=== PATIENT | female | born 1945 | race Caucasian/White ===

== ENCOUNTER 2017-12-02 16:54 | Inpatient (IN) | payer MEDICARE ==
[2017-12-02 16:54] VITALS: PULSE 115
[2017-12-02 17:17] VITALS: BMI 26.4
[2017-12-02] MEDS ORDERED: Sodium Chloride 0.9% 500 ML IV ONE ×2 (17:50→18:34)
--- NOTE | 2017-12-02 17:57 | C.PDOC ---
History Of Present Illness 72-year-old female w/PMHx of diabetes , HTN, hyperlipdemia, extensive psoriasis and psoriatic arthritis and venous stasis, chronic non-healing lower extremities ulcers was sent to ED by Dr Shaffer for admission secondary to bilateral leg cellulitis. As per pt, failed oupt treatment with antibiotic. Patient denies fever, chills, chest pain, SOB, nausea, vomiting, weakness or numbness in the legs. Pt reports similar sx in past, last one was month ago. pt is able to walk and denies any claudication. A Time Seen by Provider: 12/02/17 17:45 Chief Complaint (Nursing): Lower Extremity Problem/Injury History Per: Patient, Other (Rx from Dr Shaffer) History/Exam Limitations: no limitations Past Medical History Reviewed: Historical Data, Nursing Documentation, Vital Signs Vital Signs: Last Vital Signs Temp 98.1 F 12/03/17 02:46 Pulse 99 H 12/03/17 03:45 Resp 20 12/03/17 02:46 BP 114/70 12/03/17 10:17 Pulse Ox 95 12/03/17 10:36 - Medical History PMH: Cardia Arrhythmia, Gastritis, HTN Family History: States: No Known Family Hx - Social History Hx Alcohol Use: No Hx Substance Use: No - Immunization History Hx Tetanus Toxoid Vaccination: Yes Hx Influenza Vaccination: No Hx Pneumococcal Vaccination: No Review Of Systems Except As Marked, All Systems Reviewed And Found Negative. Constitutional: Negative for: Fever Cardiovascular: Negative for: Chest Pain Respiratory: Negative for: Shortness of Breath Gastrointestinal: Negative for: Nausea, Vomiting Neurological: Negative for: Weakness, Numbness Physical Exam - Physical Exam Appears: Non-toxic, No Acute Distress Skin: Warm, Dry, No Rash, Other (Right leg: lateral aspect of lower 2/3 leg 2ulcers 3x4cm and 9#5cm moderate serous drainage noted, diffuse erythema of leg , no fluctuance, no malodor, no purulence) Head: Normacephalic Eye(s): bilateral: PERRL Nose: Normal Throat: No Erythema, No Drooling Neck: Trachea Midline, Supple Chest: Symmetrical Cardiovascular: Rhythm Regular, No Murmur Respiratory: No Decreased Breath Sounds, No Accessory Muscle Use, No Rales, No Rhonchi, No Stridor, No Wheezing Gastrointestinal/Abdominal: Soft, No Tenderness, No Distention, No Guarding Extremity: Normal ROM, No Deformity, Swelling (R>L mild diffuse lower legs edema ), Other (Left leg:ulceration #3 noted to posterior-lateral aspect of left leg measuring approx 4 x 3cm with moderate serous drainage noted, diffuse erythema of leg, no fluctuance, no malodor, no purulence. Left hallux nail amputated.) Pulses: Left Dorsalis Pedis: Normal, Right Dorsalis Pedis: Normal Neurological/Psych: Oriented x3, Normal Speech, Normal Motor, Normal Sensation, Normal Reflexes ED Course And Treatment - Laboratory Results Result Diagrams: 12/02/17 18:27 12/03/17 03:30 O2 Sat by Pulse Oximetry: 95 (RA) Pulse Ox Interpretation: Normal Progress Note: Case discussed with and admission arranged. Podiatry resident notified about admission consult. Pt remained stable during the ED evaluation. Disposition - Disposition Disposition: HOSPITALIZED Disposition Time: 18:40 Condition: STABLE - Clinical Impression Clinical Impression: Cellulitis, Diabetic ulcer of ankle - Scribe Statement The provider has reviewed the documentation as recorded by the Scribe (Reyna Akbar) All medical record entries made by the Scribe were at my direction and personally dictated by me. I have reviewed the chart and agree that the record accurately reflects my personal performance of the history, physical exam, medical decision making, and the department course for this patient. I have also personally directed, reviewed, and agree with the discharge instructions and disposition.
[2017-12-02 18:36] LABS: BASO # 0.1 K/uL (0.0-0.2); BASO % 1.6 % (0.0-2.0); EOS # 0.1 K/uL (0.0-0.7); EOS % 2.3 % (0.0-4.0); HEMOGLOBIN 10.6 g/dL (11.0-16.0); LYMPH # 0.7 K/uL (1.0-4.3); LYMPH % 21.5 % (20.0-40.0); MEAN CELL VOLUME 82.4 fL (81.0-99.0); MEAN CORPUSCULAR HEMOGLOBIN 26.5 pg (27.0-31.0); MEAN CORPUSCULAR HGB CONC 32.1 g/dL (33.0-37.0); MEAN PLATELET VOLUME 7.4 fL (7.2-11.7); MONO # 0.4 K/uL (0.0-0.8); MONO % 12.7 % (0.0-10.0); NEUT # 2.1 K/uL (1.8-7.0); NEUT % 61.9 % (50.0-75.0); RBC 4.02 Mil/uL (3.80-5.20); RED CELL DISTRIBUTION WIDTH 14.9 % (11.5-14.5); WHITE BLOOD COUNT 3.3 K/uL (4.8-10.8)
[2017-12-02 18:52] LABS: ALB/GLOB RATIO 0.8 (1.0-2.1); ALBUMIN 3.9 g/dL (3.5-5.0); CALCIUM 9.5 mg/dl (8.6-10.4)
[2017-12-02] MEDS ORDERED: Piperacill/Tazo 3.375gm in Dex 3.375 GM/50 ML BAG IVPB SCH (19:00)
[2017-12-02 19:58] LABS: SQUAMOUS EPITHIAL < 1 /hpf (0-5); URINE BILIRUBIN NEGATIVE (NEGATIVE); URINE BLOOD NEGATIVE (NEGATIVE); URINE CLARITY Clear (Clear); URINE COLOR Yellow (YELLOW); URINE GLUCOSE (UA) NORMAL (Normal); URINE LEUKOCYTE ESTERASE NEG Leu/uL (Negative); URINE NITRATE NEGATIVE (NEGATIVE); URINE PROTEIN 1+ mg/dL (NEGATIVE); URINE UROBILINOGEN NORMAL mg/dL (0.2-1.0)
--- NOTE | 2017-12-02 21:35 | CP.PCM.CON ---
History of Present Illness - History of Present Illness History of Present Illness: Podiatry Consult Note- Dr. Shaffer 72 y.o female with PMHx of DM, HTN, hyperlipidemia, psoriasis, psoriatric arthritis, venous stasis disease seen and evaluated in the ED for LE cellulites and bilaterally ulcerations. Patient is known to Dr. Shaffer and sent to the ED to be admitted for cellulitic changes to LE with ulcerations after seeing her in the office yesterday. Patient reports pain to the LE. She describes the pain as a burning pain that stays localized to the ulceration sites. She reports that there has been increase drainage to her legs. She also reports recently having her big toe nails being removed by Dr. Shaffer in the office. She denies n/ v/c/sob/cp/weakness/dizziness. She reports having a fever yesterday. Past Patient History - Infectious Disease Hx of Infectious Diseases: None - Past Medical History & Family History Past Medical History?: Yes - Past Social History Smoking Status: Never Smoked - CARDIAC Hx Cardia Arrhythmia: Yes Hx Hypertension: Yes - PULMONARY Hx Respiratory Disorders: No - NEUROLOGICAL Hx Neurological Disorder: No - HEENT Hx HEENT Problems: Yes Hx Cataracts: Yes - ENDOCRINE/METABOLIC Hx Endocrine Disorders: Yes Hx Diabetes Mellitus Type 2: Yes - HEMATOLOGICAL/ONCOLOGICAL Hx Blood Disorders: Yes Hx Cancer: Yes (BREAST CA 1995) - INTEGUMENTARY Hx Dermatological Problems: Yes Other/Comment: psoriasis - MUSCULOSKELETAL/RHEUMATOLOGICAL Hx Musculoskeletal Disorders: Yes Hx Falls: Yes - GASTROINTESTINAL Hx Gastritis: Yes - PSYCHIATRIC Hx Substance Use: No - SURGICAL HISTORY Hx Surgeries: Yes Hx Section: Yes (x1) Hx Herniorrhaphy: Yes (x3) Hx Tubal Ligation: Yes Other/Comment: left breast lumpectomy. cardiac catherization - ANESTHESIA Hx Anesthesia: Yes Hx Anesthesia Reactions: No Meds Allergies/Adverse Reactions: Allergies Allergy/AdvReac Type Severity Reaction Status Date / Time apple Allergy Verified 12/02/17 17:15 aspirin Allergy RASH Verified 12/02/17 17:15 iodine Allergy RASH Verified 12/02/17 17:15 egg Allergy Uncoded 12/02/17 17:15 seafood Allergy RASH Uncoded 11/12/16 11:49 - Medications Medications: Current Medications Apixaban (Eliquis) 5 mg PO BID [facility] Diltiazem HCl (Cardizem) 30 mg PO TID [facility] Folic Acid (Folic Acid) 1 mg PO DAILY [facility] Furosemide (Lasix) 20 mg PO DAILY [facility] Gabapentin (Neurontin) 300 mg PO BID [facility] Hydrochlorothiazide (Hydrodiuril) 25 mg PO DAILY [facility] Piperacillin Sod/Tazobactam Sod (Zosyn 3.375 Gm Iv Premix) 3.375 gm in 50 mls @ 100 mls/hr IVPB Q8H [facility] Insulin Human Regular (Novolin R) 0 unit SC ACHS [facility] PRN Reason: Protocol Losartan Potassium (Cozaar) 100 mg PO DAILY [facility] Metformin HCl (Glucophage) 500 mg PO BID [facility] Pantoprazole Sodium (Protonix Ec Tab) 40 mg PO DAILY [facility] Physical Exam - Constitutional Appears: Well, Non-toxic, No Acute Distress - Extremities Exam Extremities exam: Negative for: calf tenderness Additional comments: Dressing is soaking wet to LE, serous in nature VASC- DP/PT pulses palpable bl, TG runs warm to warm bl, cft <3 sec to digits x 10, 2+ pitting edema noted to anterior aspect of shins and dorsum of feet b DERM: Right- Ulceration #1 noted to lateral aspect of lower 1/3 leg measures approximately 9x5 x0.2cm 100% fibrotic wound base, moderate serous drainage noted, diffuse erythema of leg, no probe to bone, no fluctuance, no malodor, no purulence Ulceration #2 noted to lateral aspect of lower 2/3 leg measures approximately 3x4x0.2cm 100% fibrotic wound base, moderate serous drainage noted, diffuse erythema of leg, no probe to bone, no fluctuance, no malodor, no purulence Left ulceration #3 noted to posterior-lateral aspect of left leg measuring approx 4 x 3 x 0.2cm with 100% fibrotic wound base, moderate serous drainage noted, diffuse erythema of leg, no probe to bone, no fluctuance, no malodor, no purulence. Missing hallux nail plate, granular wound base. no probe to bone, no fluctuance , no malodor, no purulence. no active drainage NEURO: gross pedal sensation intact bl, protective sensation diminished bl ORTHO: tenderness upon palpation to skin surrounding ulcerations bl - Neurological Exam Neurological exam: Alert, Oriented x3 - Psychiatric Exam Psychiatric exam: Normal Affect, Normal Mood Results - Vital Signs Recent Vital Signs: Last Vital Signs Temp 97.3 F L 12/02/17 17:17 Pulse 102 H 12/02/17 17:17 Resp 18 12/02/17 17:17 BP 112/74 12/02/17 17:17 Pulse Ox 95 12/02/17 18:01 - Labs Result Diagrams: 12/02/17 18:27 12/02/17 18:27 Labs: Laboratory Results - last 24 hr 12/02/17 12/02/17 12/02/17 18:27 18:27 19:48 WBC 3.3 L RBC 4.02 Hgb 10.6 L Hct 33.1 L MCV 82.4 D MCH 26.5 L MCHC 32.1 L RDW 14.9 H Plt Count 316 MPV 7.4 Neut % (Auto) 61.9 Lymph % (Auto) 21.5 [place] % (Auto) 12.7 H Eos % (Auto) 2.3 Baso % (Auto) 1.6 Neut # (Auto) 2.1 Lymph # (Auto) 0.7 L [place] # (Auto) 0.4 Eos # (Auto) 0.1 Baso # (Auto) 0.1 Sodium 130 L Potassium 5.8 H Chloride 93 L Carbon Dioxide 26 Anion Gap 17 BUN 40 H Creatinine 1.6 H Est GFR ( Amer) 39 Est GFR (Non-Af Amer) 32 Random Glucose 122 H Calcium 9.5 Total Bilirubin 0.5 AST 24 ALT 25 Alkaline Phosphatase 86 Total Protein 8.8 H Albumin 3.9 Globulin 4.9 H Albumin/Globulin Ratio 0.8 L Urine Color Yellow Urine Clarity Clear Urine pH 6.0 Ur Specific [place] 1.011 Urine Protein 1+ H Urine Glucose (UA) Normal Urine Ketones Negative Urine Blood Negative Urine Nitrate Negative Urine Bilirubin Negative Urine Urobilinogen Normal Ur Leukocyte Esterase Neg Urine WBC (Auto) < 1 Urine RBC (Auto) < 1 Ur Squamous Epith Cells < 1 Assessment & Plan - Assessment and Plan (Free Text) Assessment: 71 yo female patient with bilateral lower extremity ulcerations secondary to venous stasis disease and cellulitis Plan: Patient examined and evaluated Discussed plan in detail with attending Dr. Shaffer Labs, vitals, and chart reviewed LE cleansed with saline solution, ulcerations dressed with adaptic, dsd, and cling Gauze between the interdigits Wound culture taken- pending results Ordered tib/fib x-ray to rule out bony pathology Ordered bilateral x-ray to rule out bony pathology Ordered- antonioe; to be applied to LE Ordered LE US to r/o DVT c/w current abx Podiatry will continue to follow while in house Thank you for the consult
--- NOTE | 2017-12-02 22:58 | CP.PCM.HP ---
History of Present Illness - History of Present Illness History of Present Illness: CC: b/l LE swelling, redness, fever x 1 week HPI: 72 y.o female well known to me with PMHx of DM, HTN, hyperlipidemia, psoriasis, psoriatric arthritis, venous stasis disease seen and evaluated in the ED for LE cellulites and bilaterally ulcerations. Patient is known to Dr. Shaffer and sent to the ED to be admitted for cellulitic changes to LE with ulcerations after seeing her in the office yesterday. Patient reports worsening pain to the LE. She describes the pain as a burning pain that stays localized to the ulceration sites. She reports that there has been increase drainage to her legs. She also reports recently having her big toe nails being removed by Dr. Shaffer in the office. she complain of fever, fatigue and malaise .She denies n/v/c/sob/cp/weakness/dizziness. She reports having a fever yesterday. Present on Admission - Present on Admission Any Indicators Present on Admission: Yes Past Patient History - Infectious Disease Hx of Infectious Diseases: None - Past Medical History & Family History Past Medical History?: Yes - Past Social History Smoking Status: Never Smoked - CARDIAC Hx Cardia Arrhythmia: Yes Hx Hypertension: Yes - PULMONARY Hx Respiratory Disorders: No - NEUROLOGICAL Hx Neurological Disorder: No - HEENT Hx HEENT Problems: Yes Hx Cataracts: Yes - ENDOCRINE/METABOLIC Hx Endocrine Disorders: Yes Hx Diabetes Mellitus Type 2: Yes - HEMATOLOGICAL/ONCOLOGICAL Hx Blood Disorders: Yes Hx Cancer: Yes (BREAST CA 1995) - INTEGUMENTARY Hx Dermatological Problems: Yes Other/Comment: psoriasis - MUSCULOSKELETAL/RHEUMATOLOGICAL Hx Musculoskeletal Disorders: Yes Hx Falls: Yes - GASTROINTESTINAL Hx Gastritis: Yes - PSYCHIATRIC Hx Substance Use: No - SURGICAL HISTORY Hx Surgeries: Yes Hx Section: Yes (x1) Hx Herniorrhaphy: Yes (x3) Hx Tubal Ligation: Yes Other/Comment: left breast lumpectomy. cardiac catherization - ANESTHESIA Hx Anesthesia: Yes Hx Anesthesia Reactions: No Meds Allergies/Adverse Reactions: Allergies Allergy/AdvReac Type Severity Reaction Status Date / Time apple Allergy Verified 12/02/17 17:15 aspirin Allergy RASH Verified 12/02/17 17:15 iodine Allergy RASH Verified 12/02/17 17:15 egg Allergy Uncoded 12/02/17 17:15 seafood Allergy RASH Uncoded 11/12/16 11:49 Physical Exam - Constitutional Appears: Chronically Ill Additional comments: elderly female in distress due to pain in b/l LE - Head Exam Head Exam: ATRAUMATIC, NORMAL INSPECTION, NORMOCEPHALIC - Eye Exam Eye Exam: EOMI, Normal appearance, PERRL Pupil Exam: NORMAL ACCOMODATION, PERRL - Respiratory Exam Respiratory Exam: Clear to Auscultation Bilateral, NORMAL BREATHING PATTERN - Cardiovascular Exam Cardiovascular Exam: REGULAR RHYTHM - GI/Abdominal Exam GI & Abdominal Exam: Normal Bowel Sounds, Soft. absent: Tenderness - Extremities Exam Extremities exam: Positive for: tenderness Additional comments: redness, swelling, puffiness with ulcerations on skin b/l LE more on right side - Neurological Exam Neurological exam: Alert, Oriented x3 - Psychiatric Exam Psychiatric exam: Normal Affect, Normal Mood - Skin Skin Exam: Dry, Intact, Normal Color, Warm Results - Vital Signs Recent Vital Signs: Last Vital Signs Temp 97.3 F L 12/02/17 17:17 Pulse 102 H 12/02/17 17:17 Resp 18 12/02/17 17:17 BP 112/74 12/02/17 17:17 Pulse Ox 95 12/02/17 18:01 - Labs Result Diagrams: 12/02/17 18:27 12/02/17 18:27 Labs: Laboratory Results - last 24 hr 12/02/17 12/02/17 12/02/17 18:27 18:27 19:48 WBC 3.3 L RBC 4.02 Hgb 10.6 L Hct 33.1 L MCV 82.4 D MCH 26.5 L MCHC 32.1 L RDW 14.9 H Plt Count 316 MPV 7.4 Neut % (Auto) 61.9 Lymph % (Auto) 21.5 [place] % (Auto) 12.7 H Eos % (Auto) 2.3 Baso % (Auto) 1.6 Neut # (Auto) 2.1 Lymph # (Auto) 0.7 L [place] # (Auto) 0.4 Eos # (Auto) 0.1 Baso # (Auto) 0.1 Sodium 130 L Potassium 5.8 H Chloride 93 L Carbon Dioxide 26 Anion Gap 17 BUN 40 H Creatinine 1.6 H Est GFR ( Amer) 39 Est GFR (Non-Af Amer) 32 Random Glucose 122 H Calcium 9.5 Total Bilirubin 0.5 AST 24 ALT 25 Alkaline Phosphatase 86 Total Protein 8.8 H Albumin 3.9 Globulin 4.9 H Albumin/Globulin Ratio 0.8 L Urine Color Yellow Urine Clarity Clear Urine pH 6.0 Ur Specific [place] 1.011 Urine Protein 1+ H Urine Glucose (UA) Normal Urine Ketones Negative Urine Blood Negative Urine Nitrate Negative Urine Bilirubin Negative Urine Urobilinogen Normal Ur Leukocyte Esterase Neg Urine WBC (Auto) < 1 Urine RBC (Auto) < 1 Ur Squamous Epith Cells < 1 Assessment & Plan (1) Cellulitis Assessment and Plan: Assessment: 71 yo female patient with bilateral lower extremity ulcerations secondary to venous stasis disease and cellulitis Plan: Patient examined and evaluated Admitted for further medical management Labs, vitals, and chart reviewed LE cleansed with saline solution, ulcerations dressed with adaptic, dsd, and cling by podiatry Gauze between the interdigits Wound culture taken- pending results Ordered tib/fib x-ray to rule out bony pathology Ordered bilateral x-ray to rule out bony pathology Ordered- silvadene; to be applied to LE Ordered LE US to r/o DVT c/w current abx rule out diabetic foot Status: Acute (2) Diabetes Status: Chronic (3) HTN (hypertension) Status: Chronic
[2017-12-02] MEDS ORDERED: Vancomycin 1 gm/NS 200 ml 1 GM/200 ML BAG IVPB ONE (23:00)
[2017-12-02] MEDS ORDERED: (Novolin R) Insulin Human Regular 100 units/ml vial ONE (23:24)
[2017-12-02] MEDS: (Novolin R) Insulin Human Regular 100 units/ml vial SC SCH (23:24)
[2017-12-02] MEDS: Piperacill/Tazo 3.375gm in Dex 3.375 GM/50 ML BAG IVPB SCH (23:48)
[2017-12-03 03:45] LABS: CALCIUM 8.9 mg/dl (8.6-10.4)
[2017-12-03] MEDS: Piperacill/Tazo 3.375gm in Dex 3.375 GM/50 ML BAG IVPB SCH ×2 (06:00→14:00)
[2017-12-03] MEDS: (Novolin R) Insulin Human Regular 100 units/ml vial SC SCH ×4 (07:54→21:55)
[2017-12-03] MEDS: Pantoprazole 40 mg EC Tab PO SCH (10:18)
--- NOTE | 2017-12-03 11:21 | CP.PCM.PN ---
Subjective - Date & Time of Evaluation Date of Evaluation: 12/03/17 Time of Evaluation: 11:21 - Subjective Subjective: 72 y/o female seen at bedside with attending Dr. Shaffer for bilateral cellulitis with weeping ulcerations. Pt states her pain is improved today but still present in both legs. Pt says it is very tender to touch the legs. Pt also says she still has an ulcer on the top of her right toe after bumping it a few weeks ago. Denies F/C/N/V/CP/SOB at present Objective - Vital Signs/Intake and Output Vital Signs (last 24 hours): Temp Pulse Resp BP Pulse Ox 98.1 F 99 H 20 114/70 95 12/03/17 02:46 12/03/17 03:45 12/03/17 02:46 12/03/17 10:17 12/03/17 10:44 Intake and Output: 12/03/17 12/03/17 06:59 18:59 Intake Total 350 Balance 350 - Medications Medications: Current Medications Apixaban (Eliquis) 5 mg PO BID [facility] Last Admin: 12/03/17 10:17 Dose: 5 mg Diltiazem HCl (Cardizem) 30 mg PO TID [facility] Last Admin: 12/03/17 10:17 Dose: 30 mg Folic Acid (Folic Acid) 1 mg PO DAILY [facility] Last Admin: 12/03/17 10:17 Dose: 1 mg Furosemide (Lasix) 20 mg PO DAILY [facility] Last Admin: 12/03/17 10:17 Dose: 20 mg Gabapentin (Neurontin) 300 mg PO BID [facility] Last Admin: 12/03/17 10:18 Dose: 300 mg Hydrochlorothiazide (Hydrodiuril) 25 mg PO DAILY [facility] Last Admin: 12/03/17 10:17 Dose: 25 mg Piperacillin Sod/Tazobactam Sod (Zosyn 3.375 Gm Iv Premix) 3.375 gm in 50 mls @ 100 mls/hr IVPB Q8H [facility] Last Admin: 12/03/17 06:00 Dose: 100 mls/hr Insulin Human Regular (Novolin R) 0 unit SC ACHS [facility] PRN Reason: Protocol Last Admin: 12/03/17 07:54 Dose: Not Given Losartan Potassium (Cozaar) 100 mg PO DAILY [facility] Last Admin: 12/03/17 10:17 Dose: 100 mg Metformin HCl (Glucophage) 500 mg PO BID [facility] Last Admin: 12/03/17 10:17 Dose: 500 mg Pantoprazole Sodium (Protonix Ec Tab) 40 mg PO DAILY [facility] Last Admin: 12/03/17 10:18 Dose: 40 mg Pneumococcal Polyvalent Vaccine (Pneumovax 23 Vaccine) 0.5 ml IM .ONCE ONE Stop: 12/04/17 10:01 - Labs Labs: 12/02/17 18:27 12/03/17 03:30 - Constitutional Appears: Well, Non-toxic, No Acute Distress - Extremities Exam Additional comments: Lower extremity exam: VASC- DP/PT pulses palpable 1/4 B/L. TG runs warm to warm B/L. CFT <3 sec to digits x 10. +2 pitting edema noted to anterior aspect of shins and dorsum of feet B/L DERM: Right- Ulceration #1 noted to lateral aspect of lower 1/3 leg measures approximately 9cm x 5cm x0.2cm with 100% fibrotic wound base, minimal serous drainage noted on previous bandage with no active drainage today. Diffuse erythema with cellulitic changes noted to leg. Wound exhibits no probe to bone, no fluctuance , no malodor, no purulence Ulceration #2 noted to lateral aspect of lower 2/3 leg measures approximately 3cm x4cm x0.2cm with 100% fibrotic wound base. Minimal serous drainage noted on bandage, with no active drainage on exam. Diffuse mild erythema of leg with cellulitic changes noted. Wound exhibits no probe to bone, no fluctuance, no malodor, no purulence. Left: ulceration #3 noted to posterolateral aspect of left leg measuring approx 4cm x 3cm x 0.2cm with 100% fibrotic wound base, minimal serous drainage noted. Mild erythema noted to leg. Wound exhibits no probe to bone, no fluctuance, no malodor, no purulence. Missing hallux nail plate - granular wound base noted to proximal hallucal nail bed. No probe to bone, no fluctuance, no malodor, no purulence. no active drainage NEURO: gross pedal sensation intact B/L. Protective sensation diminished B/L ORTHO: tenderness upon palpation to skin surrounding ulcerations B/L - Neurological Exam Neurological Exam: Alert, Awake, Oriented x3 - Psychiatric Exam Psychiatric exam: Normal Affect, Normal Mood Assessment and Plan - Assessment and Plan (Free Text) Assessment: 71 yo female patient with bilateral lower extremity ulcerations secondary to venous stasis disease and cellulitis Plan: Patient examined and evaluated with attending Dr. Shaffer Labs, vitals, and chart reviewed - afebrile, WBC 3.3 LE cleansed with saline solution, ulcerations dressed with medi-honey, ABD and DSD B/L Wound culture taken- pending results Ordered tib/fib x-ray to rule out bony pathology Ordered bilateral x-ray to rule out bony pathology Ordered LE US to r/o DVT Arterial duplex pending Continue IV Zosyn Podiatry will continue to follow while in house
--- NOTE | 2017-12-03 14:24 | RAD ---
PROCEDURE: Radiographs of the bilateral Tibiae and Fibulae. HISTORY: r/o bony pathology COMPARISON: Bilateral tibia fibula radiographs performed 11/12/16 TECHNIQUE: Frontal and lateral views obtained. FINDINGS: BONES: RIGHT TIBIA: No acute displaced fracture. Small calcaneal enthesophyte and heel spur. Suprapatellar and infrapatellar enthesophytes. Suprapatellar enthesophyte. Small calcaneal enthesophyte and heel spur. LEFT TIBIA: No acute displaced fracture. JOINT SPACES: RIGHT TIBIA: No dislocation. Degenerative changes including joint space narrowing. LEFT TIBIA: No dislocation. Degenerative changes including joint space narrowing. SOFT TISSUES: RIGHT TIBIA: Probable soft tissue edema. No evidence of radiopaque foreign body. LEFT TIBIA: Probable soft tissue edema. No evidence of radiopaque foreign body. OTHER FINDINGS: None. IMPRESSION: Probable bilateral soft tissue edema. Osseous demineralization. No acute displaced fracture or dislocation identified. Degenerative changes bilaterally.
--- NOTE | 2017-12-03 14:28 | RAD ---
PROCEDURE: Bilateral Feet Radiographs. HISTORY: r/o bony pathology COMPARISON: Bilateral foot radiographs performed 11/12/16 FINDINGS: BONES: Right Foot: Osseous demineralization. Degenerative changes. Left Foot: Osseous demineralization. Degenerative changes. JOINTS: Right Foot: No dislocation. Left Foot: No dislocation. SOFT TISSUES: Right Foot: Soft tissue swelling. Left Foot: Soft tissue swelling. OTHER FINDINGS: None. IMPRESSION: Soft tissue swelling bilaterally. Osseous demineralization. Degenerative changes.
--- NOTE | 2017-12-03 18:56 | CP.PCM.PN ---
Objective - Vital Signs/Intake and Output Vital Signs (last 24 hours): Temp Pulse Resp BP Pulse Ox 97.6 F 123 H 20 102/63 96 12/03/17 16:00 12/03/17 16:00 12/03/17 16:00 12/03/17 16:00 12/03/17 16:00 Intake and Output: 12/03/17 12/03/17 06:59 18:59 Intake Total 350 730 Balance 350 730 - Medications Medications: Current Medications Apixaban (Eliquis) 5 mg PO BID [facility] Last Admin: 12/03/17 17:55 Dose: 5 mg Diltiazem HCl (Cardizem) 30 mg PO TID [facility] Last Admin: 12/03/17 17:55 Dose: 30 mg Folic Acid (Folic Acid) 1 mg PO DAILY [facility] Last Admin: 12/03/17 10:17 Dose: 1 mg Furosemide (Lasix) 20 mg PO DAILY [facility] Last Admin: 12/03/17 10:17 Dose: 20 mg Gabapentin (Neurontin) 300 mg PO BID [facility] Last Admin: 12/03/17 17:55 Dose: 300 mg Hydrochlorothiazide (Hydrodiuril) 25 mg PO DAILY [facility] Last Admin: 12/03/17 10:17 Dose: 25 mg Piperacillin Sod/Tazobactam (Sod 3.375 gm/ Sodium Chloride) 100 mls @ 100 mls/ hr IVPB Q8H [facility] Insulin Human Regular (Novolin R) 0 unit SC ACHS [facility] PRN Reason: Protocol Last Admin: 12/03/17 16:30 Dose: Not Given Losartan Potassium (Cozaar) 100 mg PO DAILY [facility] Last Admin: 12/03/17 10:17 Dose: 100 mg Metformin HCl (Glucophage) 500 mg PO BID [facility] Last Admin: 12/03/17 17:55 Dose: 500 mg Pantoprazole Sodium (Protonix Ec Tab) 40 mg PO DAILY [facility] Last Admin: 12/03/17 10:18 Dose: 40 mg Pneumococcal Polyvalent Vaccine (Pneumovax 23 Vaccine) 0.5 ml IM .ONCE ONE Stop: 12/04/17 10:01 - Labs Labs: 12/02/17 18:27 12/03/17 03:30 Assessment and Plan (1) Cellulitis Status: Acute (2) Diabetes Status: Chronic (3) HTN (hypertension) Status: Chronic
[2017-12-03] MEDS: Piperacillin/Tazobact 3.375 GM in Sodium Chloride 0.9% 100 ML IVPB SCH (22:47)
[2017-12-04] MEDS: Piperacillin/Tazobact 3.375 GM in Sodium Chloride 0.9% 100 ML IVPB SCH ×3 (06:00→22:01)
[2017-12-04] MEDS: (Novolin R) Insulin Human Regular 100 units/ml vial SC SCH ×4 (08:00→22:03)
[2017-12-04] MEDS ORDERED: Pneumococcal 23-Valent Vaccine IM ONE (10:00)
[2017-12-04] MEDS: Pantoprazole 40 mg EC Tab PO SCH (10:48)
--- NOTE | 2017-12-04 12:47 | CP.PCM.PN ---
Subjective - Date & Time of Evaluation Date of Evaluation: 12/04/17 Time of Evaluation: 12:44 - Subjective Subjective: Podiatry Progress Note - Dr. Shaffer 72 y/o female seen at bedside for bilateral cellulitis with weeping ulcerations. Pt states her pain is a little less today. Pt says there is less drainage than usual on her dressings. Denies F/C/N/V/CP/SOB at present Objective - Vital Signs/Intake and Output Vital Signs (last 24 hours): Temp Pulse Resp BP Pulse Ox 98.3 F 93 H 20 121/81 96 12/04/17 05:30 12/04/17 06:45 12/04/17 06:45 12/04/17 10:47 12/04/17 06:45 Intake and Output: 12/04/17 12/04/17 06:59 18:59 Intake Total 500 Balance 500 - Medications Medications: Current Medications Apixaban (Eliquis) 5 mg PO BID [facility] Last Admin: 12/04/17 10:46 Dose: 5 mg Diltiazem HCl (Cardizem) 30 mg PO TID [facility] Last Admin: 12/04/17 10:46 Dose: Not Given Folic Acid (Folic Acid) 1 mg PO DAILY [facility] Last Admin: 12/04/17 10:46 Dose: 1 mg Furosemide (Lasix) 20 mg PO DAILY [facility] Last Admin: 12/04/17 10:47 Dose: 20 mg Gabapentin (Neurontin) 300 mg PO BID [facility] Last Admin: 12/04/17 10:47 Dose: 300 mg Hydrochlorothiazide (Hydrodiuril) 25 mg PO DAILY [facility] Last Admin: 12/04/17 10:47 Dose: 25 mg Piperacillin Sod/Tazobactam (Sod 3.375 gm/ Sodium Chloride) 100 mls @ 100 mls/ hr IVPB Q8H [facility] Last Admin: 12/04/17 06:00 Dose: 100 mls/hr Insulin Human Regular (Novolin R) 0 unit SC ACHS [facility] PRN Reason: Protocol Last Admin: 12/04/17 11:54 Dose: Not Given Losartan Potassium (Cozaar) 100 mg PO DAILY [facility] Last Admin: 12/04/17 10:46 Dose: 100 mg Metformin HCl (Glucophage) 500 mg PO BID [facility] Last Admin: 12/04/17 10:46 Dose: 500 mg Pantoprazole Sodium (Protonix Ec Tab) 40 mg PO DAILY [facility] Last Admin: 12/04/17 10:48 Dose: 40 mg - Labs Labs: 12/02/17 18:27 12/03/17 03:30 - Constitutional Appears: Well, Non-toxic, No Acute Distress - Extremities Exam Additional comments: Lower extremity exam: VASC- DP/PT pulses palpable 1/4 B/L. TG runs warm to warm B/L. CFT <3 sec to digits x 10. +2 pitting edema noted to anterior aspect of shins and dorsum of feet B/L DERM: Right- Ulceration #1 noted to lateral aspect of lower 1/3 leg measures approximately 9cm x 5cm x0.2cm with 100% fibrotic wound base, minimal serous drainage noted on previous bandage with no active drainage today. Diffuse erythema with cellulitic changes noted to leg. Wound exhibits no probe to bone, no fluctuance , no malodor, no purulence Ulceration #2 noted to lateral aspect of lower 2/3 leg measures approximately 3cm x4cm x0.2cm with 100% fibrotic wound base. Minimal serous drainage noted on bandage, with no active drainage on exam. Diffuse mild erythema of leg with cellulitic changes noted. Wound exhibits no probe to bone, no fluctuance, no malodor, no purulence. Missing hallux nail plate - granular wound base noted to proximal hallucal nail bed. No probe to bone, no fluctuance, no malodor, no purulence. no active drainage Left: ulceration #3 noted to posterolateral aspect of left leg measuring approx 4cm x 3cm x 0.2cm with 100% fibrotic wound base, minimal serous drainage noted. Mild erythema noted to leg. Wound exhibits no probe to bone, no fluctuance, no malodor, no purulence. NEURO: gross pedal sensation intact B/L. Protective sensation diminished B/L ORTHO: tenderness upon palpation to skin surrounding ulcerations B/L - Neurological Exam Neurological Exam: Alert, Awake, Oriented x3 - Psychiatric Exam Psychiatric exam: Normal Affect, Normal Mood Assessment and Plan - Assessment and Plan (Free Text) Assessment: 71 yo female patient with bilateral lower extremity ulcerations secondary to venous stasis disease and cellulitis Plan: Patient examined and evaluated Discussed with attending Dr. Shaffer Labs, vitals, and chart reviewed - afebrile, NNL LE cleansed with saline solution, ulcerations dressed with medi-honey, ABD and DSD B/L Wound culture prelim shows growth of gram negative rods Foot and tib/fib x-rays negative for any erosive osseous changes Ordered LE US to r/o DVT Arterial duplex pending Continue IV Zosyn Podiatry will continue to follow while in house
[2017-12-04 16:12] VITALS: RESP 20
[2017-12-04] MEDS ORDERED: Metoprolol Succinate 25 mg XL Tab PO ONE (20:26)
--- NOTE | 2017-12-04 21:04 | CP.PCM.PN ---
Subjective - Date & Time of Evaluation Date of Evaluation: 12/04/17 Time of Evaluation: 10:00 - Subjective Subjective: Pt seen and examined, doing better, only her HR is 160, Pt states her pain is a little less today. Pt says there is less drainage than usual on her dressings. Denies F/C/N/V/CP/SOB at present Objective - Vital Signs/Intake and Output Vital Signs (last 24 hours): Temp Pulse Resp BP Pulse Ox 98.1 F 160 H 20 105/70 96 12/04/17 15:00 12/04/17 15:00 12/04/17 15:00 12/04/17 15:00 12/04/17 15:00 Intake and Output: 12/04/17 12/05/17 18:59 06:59 Intake Total 730 Balance 730 - Medications Medications: Current Medications Apixaban (Eliquis) 5 mg PO BID [facility] Last Admin: 12/04/17 17:47 Dose: 5 mg Diltiazem HCl (Cardizem) 30 mg PO TID [facility] Last Admin: 12/04/17 17:47 Dose: 30 mg Folic Acid (Folic Acid) 1 mg PO DAILY [facility] Last Admin: 12/04/17 10:46 Dose: 1 mg Furosemide (Lasix) 20 mg PO DAILY [facility] Last Admin: 12/04/17 10:47 Dose: 20 mg Gabapentin (Neurontin) 300 mg PO BID [facility] Last Admin: 12/04/17 18:00 Dose: 300 mg Piperacillin Sod/Tazobactam (Sod 3.375 gm/ Sodium Chloride) 100 mls @ 100 mls/ hr IVPB Q8H [facility] Last Admin: 12/04/17 14:07 Dose: 100 mls/hr Insulin Human Regular (Novolin R) 0 unit SC ACHS [facility] PRN Reason: Protocol Last Admin: 12/04/17 16:09 Dose: Not Given Losartan Potassium (Cozaar) 100 mg PO DAILY [facility] Last Admin: 12/04/17 10:46 Dose: 100 mg Metformin HCl (Glucophage) 500 mg PO BID [facility] Last Admin: 12/04/17 17:46 Dose: 500 mg Metoprolol Succinate (Toprol Xl) 25 mg PO DAILY [facility] Pantoprazole Sodium (Protonix Ec Tab) 40 mg PO DAILY [facility] Last Admin: 12/04/17 10:48 Dose: 40 mg - Labs Labs: 12/02/17 18:27 12/03/17 03:30 - Constitutional Appears: No Acute Distress - ENT Exam ENT Exam: Mucous Membranes Moist, Normal Exam - Respiratory Exam Respiratory Exam: Clear to Ausculation Bilateral, NORMAL BREATHING PATTERN - Cardiovascular Exam Cardiovascular Exam: Tachycardia, +S1, +S2 - Neurological Exam Neurological Exam: Alert, Awake, CN II-XII Intact, Normal Gait, Oriented x3 - Skin Skin Exam: Erythema, Vesicles Assessment and Plan (1) Cellulitis Status: Acute (2) Diabetes Status: Chronic (3) HTN (hypertension) Status: Chronic (4) Tachycardia Assessment & Plan: Rule of a,fib, flutter Status: Acute
[2017-12-05] MEDS: Piperacillin/Tazobact 3.375 GM in Sodium Chloride 0.9% 100 ML IVPB SCH ×3 (06:31→22:32)
[2017-12-05] MEDS: (Novolin R) Insulin Human Regular 100 units/ml vial SC SCH ×4 (08:00→22:33)
[2017-12-05] MEDS: Pantoprazole 40 mg EC Tab PO SCH (09:27)
--- NOTE | 2017-12-05 10:31 | VASCLAB ---
PROCEDURE: Lower Extremity Venous Duplex Exam. HISTORY: r/o dvt B/l Le venous stasis cellulitis, B/L LE edema, Previous DVT PRIORS: None. TECHNIQUE: Bilateral common femoral, femoral, popliteal and posterior tibial, peroneal and great saphenous veins were evaluated. Flow was assessed with color Doppler, compressibility, assessment of phasic flow and augmentation response. Report prepared by Cali Hammonds, T FINDINGS: RIGHT: 1. Common Femoral Vein: 1.1. Compressibility - Fully compressible: Thrombus - None : Flow - Phasic: Augmentation -Normal: Reflux - . 2. Femoral Vein: 2.1. Compressibility - Fully compressible: Thrombus - None : Flow - Phasic: Augmentation -Normal: Reflux - . 3. Popliteal Vein: 3.1. Compressibility - Partial: Thrombus - Chronic : Flow - Reduced : Augmentation -Reduced: Reflux - . 4. Posterior Tibial Vein: 4.1. Compressibility - Fully compressible: Thrombus - None: Flow - : Augmentation -: Reflux - . 5. Peroneal Vein: 5.1. Compressibility - Fully compressible: Thrombus - : Flow - : Augmentation -: Reflux - . 6. Great Saphenous Vein: 6.1. Compressibility - Fully compressible: Thrombus - None: Flow - Phasic: Augmentation - : Reflux - . LEFT: 1. Common Femoral Vein: 1.1. Compressibility - Fully compressible: Thrombus - None: Flow - Phasic: Augmentation -Normal: Reflux - . 2. Femoral Vein: 2.1. Compressibility - Fully compressible: Thrombus - None: Flow - Phasic: Augmentation -Normal: Reflux - . 3. Popliteal Vein: 3.1. Compressibility - Fully compressible: Thrombus - None : Flow - Phasic: Augmentation -Normal: Reflux - . 4. Posterior Tibial Vein: 4.1. Compressibility - Fully compressible: Thrombus - None: Flow - : Augmentation -: Reflux - . 5. Peroneal Vein: 5.1. Compressibility - Fully compressible: Thrombus - None: Flow - : Augmentation -: Reflux - . 6. Great Saphenous Vein: 6.1. Compressibility - Fully compressible: Thrombus - None: Flow - : Augmentation - : Reflux - . OTHER FINDINGS: Right: None significant. Left: None significant. IMPRESSION: Right: An echogenic bands possibly scarring tissue from previous DVT were noted in the popliteal vein resulting in slightly decreased venous return. All other veins appeared compressible with phasic flow and normal augmentation. There was evidence of chronic deep venous thrombosis. No superficial vein thrombosis noted in the right lower extremity. Left: No evidence of deep or superficial vein thrombosis of the left lower extremity.
[2017-12-05] MEDS: Metoprolol Succinate 25 mg XL Tab PO SCH (11:41)
[2017-12-05 11:59] LABS: BASO # 0.1 K/uL (0.0-0.2); BASO % 1.5 % (0.0-2.0); EOS # 0.1 K/uL (0.0-0.7); HEMOGLOBIN 10.7 g/dL (11.0-16.0); LYMPH % 25.8 % (20.0-40.0); MEAN CORPUSCULAR HEMOGLOBIN 27.3 pg (27.0-31.0); MEAN CORPUSCULAR HGB CONC 32.9 g/dL (33.0-37.0); MEAN PLATELET VOLUME 7.5 fL (7.2-11.7); MONO # 0.5 K/uL (0.0-0.8); MONO % 12.7 % (0.0-10.0); NEUT # 2.3 K/uL (1.8-7.0); NRBC % 0.1 % (0.0-2.0); RBC 3.92 Mil/uL (3.80-5.20); RED CELL DISTRIBUTION WIDTH 14.8 % (11.5-14.5); WHITE BLOOD COUNT 3.9 K/uL (4.8-10.8)
[2017-12-05 13:22] LABS: ALB/GLOB RATIO 0.7 (1.0-2.1); ALBUMIN 3.5 g/dL (3.5-5.0); CALCIUM 8.9 mg/dl (8.6-10.4)
--- NOTE | 2017-12-05 15:41 | VASCLAB ---
STUDY DESCRIPTION: HISTORY: Arterial ulcer. PRIORS: None. TECHNIQUE: Pulse volume recording waveforms and segmental pressures of bilateral lower extremities at multiple levels were obtained. Ankle Brachial Indices (ABIs) were calculated. Report prepared by MARIA DEL CARMEN De, RVT RIGHT LOWER EXTREMITY: * Brachial artery: Pressure - 112 mmHg. * High thigh: Pressure - mmHg: Ratio - : PVR waveform - Pulsatile * Low thigh: Pressure - mmHg: Ratio - PVR waveform: Pulsatile * Calf: Pressure - mmHg: Ratio - PVR waveform: Pulsatile * Posterior tibial Artery: Pressure - 141 mmHg: Ratio - 1.26 PVR waveform: Pulsatile * Dorsalis pedis Artery: Pressure - 115 mmHg: Ratio - 1.05 PVR waveform: Pulsatile * Great toe: Pressure - mmHg: Ratio - PVR waveform: Ankle brachial index (KITTY): 1.26 LEFT LOWER EXTREMITY: * Brachial artery: Pressure - 109 mmHg. * High thigh: Pressure - mmHg: Ratio - : PVR waveform - Pulsatile * Low thigh: Pressure - mmHg: Ratio - PVR waveform: Pulsatile * Calf: Pressure - mmHg: Ratio - PVR waveform: Pulsatile * Posterior tibial Artery: Pressure - 134 mmHg: Ratio - 1.20 PVR waveform: Pulsatile * Dorsalis pedis Artery: Pressure - 118 mmHg: Ratio - 1.05 PVR waveform: Pulsatile * Great toe: Pressure - mmHg: Ratio - PVR waveform: Ankle brachial index (KITTY): 1.20 OTHER FINDINGS: Right: Left: IMPRESSION: Right: There was no evidence of hemodynamically significant arterial insufficiency in the right lower extremity. Left: There was no evidence of hemodynamically significant arterial insufficiency in the left lower extremity.
--- NOTE | 2017-12-05 22:53 | CP.PCM.PN ---
Subjective - Date & Time of Evaluation Date of Evaluation: 12/05/17 Time of Evaluation: 17:00 - Subjective Subjective: PT SEEN AND EXAMINED, HR WENT DOWN, SHE IS AFEBRILE, B/L LE CELLULITIS CULTURES POSITIVE FOR GRAM NEG RODS Objective - Vital Signs/Intake and Output Vital Signs (last 24 hours): Temp Pulse Resp BP Pulse Ox 98.1 F 95 H 20 131/61 95 12/05/17 16:44 12/05/17 16:44 12/05/17 16:44 12/05/17 16:44 12/05/17 16:44 Intake and Output: 12/05/17 12/06/17 18:59 06:59 Intake Total 780 Balance 780 - Medications Medications: Current Medications Acetaminophen (Tylenol 325mg Tab) 650 mg PO Q4 PRN PRN Reason: pain Last Admin: 12/05/17 14:26 Dose: 650 mg Apixaban (Eliquis) 5 mg PO BID [facility] Last Admin: 12/05/17 18:18 Dose: 5 mg Diltiazem HCl (Cardizem) 30 mg PO TID [facility] Last Admin: 12/05/17 18:18 Dose: 30 mg Folic Acid (Folic Acid) 1 mg PO DAILY [facility] Last Admin: 12/05/17 09:24 Dose: 1 mg Furosemide (Lasix) 20 mg PO DAILY [facility] Last Admin: 12/05/17 09:25 Dose: 20 mg Gabapentin (Neurontin) 300 mg PO BID [facility] Last Admin: 12/05/17 18:18 Dose: 300 mg Piperacillin Sod/Tazobactam (Sod 3.375 gm/ Sodium Chloride) 100 mls @ 100 mls/ hr IVPB Q8H [facility] Last Admin: 12/05/17 22:32 Dose: 100 mls/hr Insulin Human Regular (Novolin R) 0 unit SC ACHS [facility] PRN Reason: Protocol Last Admin: 12/05/17 22:33 Dose: Not Given Losartan Potassium (Cozaar) 100 mg PO DAILY [facility] Last Admin: 12/05/17 09:24 Dose: 100 mg Metformin HCl (Glucophage) 500 mg PO BID [facility] Last Admin: 12/05/17 18:18 Dose: 500 mg Metoprolol Succinate (Toprol Xl) 25 mg PO DAILY [facility] Last Admin: 12/05/17 11:41 Dose: 25 mg Pantoprazole Sodium (Protonix Ec Tab) 40 mg PO DAILY [facility] Last Admin: 12/05/17 09:27 Dose: 40 mg - Labs Labs: 12/05/17 11:46 12/05/17 11:46 - Constitutional Appears: No Acute Distress - Head Exam Head Exam: ATRAUMATIC, NORMAL INSPECTION, NORMOCEPHALIC - Eye Exam Eye Exam: EOMI, Normal appearance, PERRL Pupil Exam: NORMAL ACCOMODATION, PERRL - Respiratory Exam Respiratory Exam: Clear to Ausculation Bilateral, NORMAL BREATHING PATTERN - Cardiovascular Exam Cardiovascular Exam: Irregular Rhythm, +S1, +S2 - GI/Abdominal Exam GI & Abdominal Exam: Soft, Normal Bowel Sounds. absent: Tenderness - Skin Skin Exam: Erythema, Rash Additional comments: RLE ERYTHEMA CELLULITIS Assessment and Plan (1) Cellulitis Status: Acute (2) Diabetes Status: Chronic (3) HTN (hypertension) Status: Chronic (4) Tachycardia Status: Acute - Assessment and Plan (Free Text) Plan: MEDICAL MANAGEMENT ANTIBIOTICS\ PAIN CONTROL TIGHT SUGAR CONTROL ACCUCHECK SLIDING SCALE INSULIN
[2017-12-06] MEDS: Piperacillin/Tazobact 3.375 GM in Sodium Chloride 0.9% 100 ML IVPB SCH (06:00)
[2017-12-06] MEDS: (Novolin R) Insulin Human Regular 100 units/ml vial SC SCH ×4 (07:50→21:43)
[2017-12-06] MEDS: Metoprolol Succinate 25 mg XL Tab PO SCH (10:51)
[2017-12-06] MEDS: Pantoprazole 40 mg EC Tab PO SCH (10:51)
--- NOTE | 2017-12-06 11:02 | CP.PCM.CON ---
History of Present Illness - History of Present Illness History of Present Illness: Vascular surgery- Dr. Gilbert 72F w/ PMHx significant for DM, HTN, hyperlipidemia, psoriasis, psoriatric arthritis, venous stasis disease, DVT seen and evaluated in the ED for LE cellulites and bilaterally ulcerations. Presented to [facility] ED to be admitted for cellulitic changes to LE with ulcerations after seen in podiatry office prior. Patient reports pain to the LE. She describes the pain as a burning pain that stays localized to the ulceration sites. She reports that there has been increase drainage to her legs. subjective fevers. Denies nausea, vomiting, diarrhea, chest pain, SOB, extremity weakness, diziness, LOC. PMH: stated above PSH: , ventral hernia, umbilical hernia ALL: Asprin, Iodine SocialHx: Review of Systems - Review of Systems All systems: reviewed and no additional remarkable complaints except - Constitutional Constitutional: As Per HPI Past Patient History - Infectious Disease Hx of Infectious Diseases: None - Past Medical History & Family History Past Medical History?: Yes - Past Social History Smoking Status: Never Smoked - CARDIAC Hx Cardia Arrhythmia: Yes Hx Hypertension: Yes - PULMONARY Hx Respiratory Disorders: No - NEUROLOGICAL Hx Neurological Disorder: No - HEENT Hx HEENT Problems: Yes Hx Cataracts: Yes - ENDOCRINE/METABOLIC Hx Endocrine Disorders: Yes Hx Diabetes Mellitus Type 2: Yes - HEMATOLOGICAL/ONCOLOGICAL Hx Blood Disorders: Yes Hx Cancer: Yes (BREAST CA 1995) - INTEGUMENTARY Hx Dermatological Problems: Yes Other/Comment: psoriasis - MUSCULOSKELETAL/RHEUMATOLOGICAL Hx Musculoskeletal Disorders: Yes Hx Falls: Yes - GASTROINTESTINAL Hx Gastritis: Yes - GENITOURINARY/GYNECOLOGICAL Hx Genitourinary Disorders: No - PSYCHIATRIC Hx Substance Use: No - SURGICAL HISTORY Hx Surgeries: Yes Hx Section: Yes (x1) Hx Herniorrhaphy: Yes (x3) Hx Tubal Ligation: Yes Other/Comment: left breast lumpectomy. cardiac catherization - ANESTHESIA Hx Anesthesia: Yes Hx Anesthesia Reactions: No Meds Allergies/Adverse Reactions: Allergies Allergy/AdvReac Type Severity Reaction Status Date / Time apple Allergy Verified 12/02/17 17:15 aspirin Allergy RASH Verified 12/02/17 17:15 iodine Allergy RASH Verified 12/02/17 17:15 egg Allergy Uncoded 12/02/17 17:15 seafood Allergy RASH Uncoded 11/12/16 11:49 - Medications Medications: Current Medications Acetaminophen (Tylenol 325mg Tab) 650 mg PO Q4 PRN PRN Reason: pain Last Admin: 12/06/17 00:50 Dose: 650 mg Apixaban (Eliquis) 5 mg PO BID [facility] Last Admin: 12/06/17 10:53 Dose: 5 mg Diltiazem HCl (Cardizem) 30 mg PO TID [facility] Last Admin: 12/06/17 10:53 Dose: 30 mg Folic Acid (Folic Acid) 1 mg PO DAILY [facility] Last Admin: 12/06/17 10:51 Dose: 1 mg Furosemide (Lasix) 20 mg PO DAILY [facility] Last Admin: 12/06/17 10:52 Dose: 20 mg Gabapentin (Neurontin) 300 mg PO BID [facility] Last Admin: 12/06/17 10:51 Dose: 300 mg Piperacillin Sod/Tazobactam (Sod 3.375 gm/ Sodium Chloride) 100 mls @ 100 mls/ hr IVPB Q8H [facility] Last Admin: 12/06/17 06:00 Dose: 100 mls/hr Insulin Human Regular (Novolin R) 0 unit SC ACHS [facility] PRN Reason: Protocol Last Admin: 12/06/17 07:50 Dose: Not Given Losartan Potassium (Cozaar) 100 mg PO DAILY [facility] Last Admin: 12/06/17 10:52 Dose: 100 mg Metformin HCl (Glucophage) 500 mg PO BID [facility] Last Admin: 12/06/17 10:54 Dose: 500 mg Metoprolol Succinate (Toprol Xl) 25 mg PO DAILY [facility] Last Admin: 12/06/17 10:51 Dose: 25 mg Mupirocin (Bactroban Ointment) 1 gm TOP BID [facility] Last Admin: 12/06/17 10:55 Dose: Not Given Pantoprazole Sodium (Protonix Ec Tab) 40 mg PO DAILY [facility] Last Admin: 12/06/17 10:51 Dose: 40 mg Results - Vital Signs Recent Vital Signs: Last Vital Signs Temp 97.9 F 12/06/17 08:37 Pulse 85 12/06/17 08:37 Resp 20 12/06/17 08:37 BP 109/77 12/06/17 10:52 Pulse Ox 100 12/06/17 08:37 - Labs Result Diagrams: 12/05/17 11:46 12/05/17 11:46 Labs: Laboratory Results - last 24 hr 12/05/17 12/05/17 12/05/17 11:30 11:46 11:46 WBC 3.9 L RBC 3.92 Hgb 10.7 L Hct 32.5 L MCV 83.0 MCH 27.3 MCHC 32.9 L RDW 14.8 H Plt Count 316 MPV 7.5 Neut % (Auto) 58.0 Lymph % (Auto) 25.8 Alpine % (Auto) 12.7 H Eos % (Auto) 2.0 Baso % (Auto) 1.5 Neut # (Auto) 2.3 Lymph # (Auto) 1.0 Alpine # (Auto) 0.5 Eos # (Auto) 0.1 Baso # (Auto) 0.1 Sodium 127 L Potassium 3.7 Chloride 91 L Carbon Dioxide 24 Anion Gap 15 BUN 22 H Creatinine 1.1 Est GFR ( Amer) 59 Est GFR (Non-Af Amer) 49 POC Glucose (mg/dL) 127 H Random Glucose 132 H Calcium 8.9 Total Bilirubin 0.6 AST 28 ALT 17 Alkaline Phosphatase 71 Total Protein 8.2 Albumin 3.5 Globulin 4.8 H Albumin/Globulin Ratio 0.7 L 12/05/17 12/05/17 12/06/17 16:37 21:19 07:12 WBC RBC Hgb Hct MCV MCH MCHC RDW Plt Count MPV Neut % (Auto) Lymph % (Auto) Alpine % (Auto) Eos % (Auto) Baso % (Auto) Neut # (Auto) Lymph # (Auto) Alpine # (Auto) Eos # (Auto) Baso # (Auto) Sodium Potassium Chloride Carbon Dioxide Anion Gap BUN Creatinine Est GFR ( Amer) Est GFR (Non-Af Amer) POC Glucose (mg/dL) 133 H 90 121 H Random Glucose Calcium Total Bilirubin AST ALT Alkaline Phosphatase Total Protein Albumin Globulin Albumin/Globulin Ratio Assessment & Plan - Assessment and Plan (Free Text) Assessment: 72F nonhealing b/l LE cellulitis Plan: recommend compression socks duplex shows good blood flow Patient refusing any type of surgical intervention at this time Patient also refusing CTA w/ runoff local wound care per podiatry no surgical intervention thank you for allowing us to to be part of the care team for this patient discussed w/ Dr. Ofelia Walsh PGY1
[2017-12-06] MEDS ORDERED: DiphenhydrAMINE 50 mg/ml Inj IVP PRN (11:51)
[2017-12-06] MEDS: Cefepime IV 1 gm in Dextrose 1 GM/50 ML BAG IVPB SCH ×2 (14:00→21:42)
[2017-12-06] MEDS ORDERED: Iodixanol 320 mg/ml 150 ml Bottle IV ONE (17:05)
--- NOTE | 2017-12-06 19:20 | CP.PCM.PN ---
Subjective - Date & Time of Evaluation Date of Evaluation: 12/06/17 Time of Evaluation: 19:14 - Subjective Subjective: Podiatry Progress Note - Dr. Shaffer 72 y/o female seen at bedside for bilateral erythema with weeping ulcerations. Pt states her is much better today. She also reports a noted decrease in leg swelling and less dranage to the left leg. She denies and overnight F/C/N/V/CP /SOB at present Objective - Vital Signs/Intake and Output Vital Signs (last 24 hours): Temp Pulse Resp BP Pulse Ox 98.4 F 84 20 128/69 97 12/06/17 16:27 12/06/17 16:27 12/06/17 16:27 12/06/17 16:27 12/06/17 16:27 Intake and Output: 12/06/17 12/07/17 18:59 06:59 Intake Total 530 Balance 530 - Medications Medications: Current Medications Acetaminophen (Tylenol 325mg Tab) 650 mg PO Q4 PRN PRN Reason: pain Last Admin: 12/06/17 00:50 Dose: 650 mg Apixaban (Eliquis) 5 mg PO BID [facility] Last Admin: 12/06/17 17:53 Dose: 5 mg Diltiazem HCl (Cardizem) 30 mg PO TID [facility] Last Admin: 12/06/17 17:53 Dose: 30 mg Diphenhydramine HCl (Benadryl) 50 mg IVP BID PRN PRN Reason: Allergy symptoms Folic Acid (Folic Acid) 1 mg PO DAILY [facility] Last Admin: 12/06/17 10:51 Dose: 1 mg Furosemide (Lasix) 20 mg PO DAILY [facility] Last Admin: 12/06/17 10:52 Dose: 20 mg Gabapentin (Neurontin) 300 mg PO BID [facility] Last Admin: 12/06/17 17:53 Dose: 300 mg Cefepime HCl (Maxipime Iv 1 Gm Premix) 1 gm in 50 mls @ 100 mls/hr IVPB Q8H [facility] Last Admin: 12/06/17 14:00 Dose: 100 mls/hr Insulin Human Regular (Novolin R) 0 unit SC ACHS [facility] PRN Reason: Protocol Last Admin: 12/06/17 17:54 Dose: Not Given Losartan Potassium (Cozaar) 100 mg PO DAILY [facility] Last Admin: 12/06/17 10:52 Dose: 100 mg Metformin HCl (Glucophage) 500 mg PO BID [facility] Last Admin: 12/06/17 17:52 Dose: 500 mg Metoprolol Succinate (Toprol Xl) 25 mg PO DAILY [facility] Last Admin: 12/06/17 10:51 Dose: 25 mg Mupirocin (Bactroban Ointment) 1 gm TOP BID [facility] Last Admin: 12/06/17 10:55 Dose: Not Given Pantoprazole Sodium (Protonix Ec Tab) 40 mg PO DAILY [facility] Last Admin: 12/06/17 10:51 Dose: 40 mg Prednisone (Prednisone Tab) 50 mg PO Q6H [facility] Stop: 12/07/17 01:31 Last Admin: 12/06/17 14:19 Dose: 50 mg - Labs Labs: 12/05/17 11:46 12/05/17 11:46 - Constitutional Appears: Well, Non-toxic, No Acute Distress - Extremities Exam Additional comments: Lower extremity exam: Right dresing intact with serous strikethrough to outer layer of dressing. Left dressing clean, dry, and intact. VASC- DP/PT pulses palpable 1/4 B/L. TG runs warm to warm B/L. CFT <3 sec to digits x 10. +2 pitting edema noted to anterior aspect of shins and dorsum of feet B/L DERM: Right- Ulceration #1 noted to lateral aspect of lower 1/3 leg measures approximately 9cm x 5cm x0.2cm with 100% fibrotic wound base, minimal serous drainage noted on previous bandage with no active drainage today.Localized kyree-wound erythema noted, with regressed margins compared to marked border. Wound exhibits no probe to bone, no fluctuance, no malodor, no purulence Ulceration #2 noted to lateral aspect of lower 2/3 leg measures approximately 3cm x4cm x0.2cm with 100% fibrotic wound base. Minimal serous drainage noted on bandage, with no active drainage on exam. Diffuse mild erythema of leg with cellulitic changes noted. Wound exhibits no probe to bone, no fluctuance, no malodor, no purulence. Missing hallux nail plate - granular wound base noted to proximal hallucal nail bed with macerated margins. No probe to bone, no fluctuance, no malodor, no purulence. no active drainage Left: ulceration #3 noted to posterolateral aspect of left leg measuring approx 4cm x 3cm x 0.2cm with 100% fibrotic wound base, minimal serous drainage noted. No noted erythema to leg at this time. Wound exhibits no probe to bone, no fluctuance, no malodor, no purulence. NEURO: gross pedal sensation intact B/L. Protective sensation diminished B/L ORTHO: tenderness upon palpation to skin surrounding ulcerations B/L - Neurological Exam Neurological Exam: Alert, Awake, Oriented x3 - Psychiatric Exam Psychiatric exam: Normal Affect, Normal Mood Assessment and Plan - Assessment and Plan (Free Text) Assessment: 71 y/o female patient with bilateral lower extremity ulcerations secondary to venous stasis disease and cellulitis, resolving. Plan: Patient examined and evaluated at bedside with attending Dr. Shaffer. Labs, vitals, and chart reviewed - afebrile, leukopenic. LE cleansed with saline solution, ulcerations dressed with medi-honey, ABD and DSD B/L. Bactroban ordered to replace medihoney. Wound culture results- Aeromonas hydrophila-resistant to Zosyn. Foot and tib/fib x-rays negative for any erosive osseous changes Venous duplex results- right popliteal vein potential scarring secondary with decreased venous outflow, Negative for DVT Arterial duplex results- pulsitile lower extremity arteries absent occlusion. Continue IV abx-updated to Cefepime. Zosyn D/C. Podiatry will continue to follow while in house.
--- NOTE | 2017-12-06 23:39 | CP.PCM.PN ---
Subjective - Date & Time of Evaluation Date of Evaluation: 12/06/17 Time of Evaluation: 18:00 - Subjective Subjective: Pt seen and evalauted today, cultures from lowwr extremity cellulitis wound are positive, she has been placed on cefepime, no shortness of breath, chest pain Objective - Vital Signs/Intake and Output Vital Signs (last 24 hours): Temp Pulse Resp BP Pulse Ox 98.4 F 84 20 128/69 97 12/06/17 16:27 12/06/17 16:27 12/06/17 16:27 12/06/17 16:27 12/06/17 16:27 Intake and Output: 12/06/17 12/07/17 18:59 06:59 Intake Total 530 Balance 530 - Medications Medications: Current Medications Acetaminophen (Tylenol 325mg Tab) 650 mg PO Q4 PRN PRN Reason: pain Last Admin: 12/06/17 00:50 Dose: 650 mg Apixaban (Eliquis) 5 mg PO BID [facility] Last Admin: 12/06/17 17:53 Dose: 5 mg Diltiazem HCl (Cardizem) 30 mg PO TID [facility] Last Admin: 12/06/17 17:53 Dose: 30 mg Diphenhydramine HCl (Benadryl) 50 mg IVP BID PRN PRN Reason: Allergy symptoms Folic Acid (Folic Acid) 1 mg PO DAILY [facility] Last Admin: 12/06/17 10:51 Dose: 1 mg Furosemide (Lasix) 20 mg PO DAILY [facility] Last Admin: 12/06/17 10:52 Dose: 20 mg Gabapentin (Neurontin) 300 mg PO BID [facility] Last Admin: 12/06/17 17:53 Dose: 300 mg Cefepime HCl (Maxipime Iv 1 Gm Premix) 1 gm in 50 mls @ 100 mls/hr IVPB Q8H [facility] Last Admin: 12/06/17 21:42 Dose: 100 mls/hr Insulin Human Regular (Novolin R) 0 unit SC ACHS [facility] PRN Reason: Protocol Last Admin: 12/06/17 21:43 Dose: Not Given Losartan Potassium (Cozaar) 100 mg PO DAILY [facility] Last Admin: 12/06/17 10:52 Dose: 100 mg Metformin HCl (Glucophage) 500 mg PO BID [facility] Last Admin: 12/06/17 17:52 Dose: 500 mg Metoprolol Succinate (Toprol Xl) 25 mg PO DAILY [facility] Last Admin: 12/06/17 10:51 Dose: 25 mg Mupirocin (Bactroban Ointment) 1 gm TOP BID [facility] Last Admin: 12/06/17 21:49 Dose: 1 applic Pantoprazole Sodium (Protonix Ec Tab) 40 mg PO DAILY [facility] Last Admin: 12/06/17 10:51 Dose: 40 mg Prednisone (Prednisone Tab) 50 mg PO Q6H [facility] Stop: 12/07/17 01:31 Last Admin: 12/06/17 20:00 Dose: 50 mg - Labs Labs: 12/05/17 11:46 12/05/17 11:46 - Constitutional Appears: No Acute Distress - Head Exam Head Exam: ATRAUMATIC, NORMAL INSPECTION, NORMOCEPHALIC - Eye Exam Eye Exam: EOMI, Normal appearance, PERRL Pupil Exam: NORMAL ACCOMODATION, PERRL - Respiratory Exam Respiratory Exam: Clear to Ausculation Bilateral, NORMAL BREATHING PATTERN - Cardiovascular Exam Cardiovascular Exam: REGULAR RHYTHM, +S1, +S2. absent: Murmur Assessment and Plan (1) Cellulitis Assessment & Plan: cotinue antibiotics ID eval'' podiatry follow up Status: Acute (2) Diabetes Status: Chronic (3) HTN (hypertension) Status: Chronic (4) Tachycardia Status: Acute
[2017-12-07] MEDS: Cefepime IV 1 gm in Dextrose 1 GM/50 ML BAG IVPB SCH ×3 (06:00→21:00)
[2017-12-07 07:55] LABS: BASO % 0.6 % (0.0-2.0); EOS % 0.3 % (0.0-4.0); LYMPH # 0.5 K/uL (1.0-4.3); LYMPH % 29.5 % (20.0-40.0); MEAN CELL VOLUME 81.7 fL (81.0-99.0); MEAN PLATELET VOLUME 7.7 fL (7.2-11.7); MONO % 2.9 % (0.0-10.0); NEUT # 1.1 K/uL (1.8-7.0); NEUT % 66.7 % (50.0-75.0); NRBC % 0.9 % (0.0-2.0); RBC 4.08 Mil/uL (3.80-5.20); RED CELL DISTRIBUTION WIDTH 14.2 % (11.5-14.5)
[2017-12-07 08:11] LABS: WHITE BLOOD COUNT 1.6 K/uL (4.8-10.8)
[2017-12-07 08:22] LABS: ALB/GLOB RATIO 0.9 (1.0-2.1); ALBUMIN 3.7 g/dL (3.5-5.0); ALT/SGPT 22 U/L (9-52); AST/SGOT 26 U/L (14-36); BLOOD UREA NITROGEN 21 mg/dL (7-17); CALCIUM 9.1 mg/dl (8.6-10.4); GFR AFRICAN-AMERICAN > 60; GFR NON-AFRICAN AMERICAN 55
[2017-12-07] MEDS: (Novolin R) Insulin Human Regular 100 units/ml vial SC SCH ×4 (08:25→22:00)
[2017-12-07] MEDS: Pantoprazole 40 mg EC Tab PO SCH (10:57)
[2017-12-07] MEDS: Metoprolol Succinate 25 mg XL Tab PO SCH (10:57)
--- NOTE | 2017-12-07 19:08 | CP.PCM.PN ---
Subjective - Date & Time of Evaluation Date of Evaluation: 12/07/17 Time of Evaluation: 11:50 - Subjective Subjective: Podiatry Progress Note - Dr. Shaffer 72 y/o female seen at bedside for bilateral erythema with weeping ulcerations. She reports continued decrease in leg swelling and less dranage to the right leg. She denies any overnight complication or events including F/C/N/V/CP/SOB. Objective - Vital Signs/Intake and Output Vital Signs (last 24 hours): Temp Pulse Resp BP Pulse Ox 98.1 F 82 20 123/67 97 12/07/17 15:00 12/07/17 15:00 12/07/17 15:00 12/07/17 15:00 12/07/17 15:00 Intake and Output: 12/07/17 12/08/17 18:59 06:59 Intake Total 530 Balance 530 - Medications Medications: Current Medications Acetaminophen (Tylenol 325mg Tab) 650 mg PO Q4 PRN PRN Reason: pain Last Admin: 12/06/17 00:50 Dose: 650 mg Apixaban (Eliquis) 5 mg PO BID [facility] Last Admin: 12/07/17 17:49 Dose: 5 mg Diltiazem HCl (Cardizem) 30 mg PO TID [facility] Last Admin: 12/07/17 17:48 Dose: 30 mg Diphenhydramine HCl (Benadryl) 50 mg IVP BID PRN PRN Reason: Allergy symptoms Folic Acid (Folic Acid) 1 mg PO DAILY [facility] Last Admin: 12/07/17 10:57 Dose: 1 mg Furosemide (Lasix) 20 mg PO DAILY [facility] Last Admin: 12/07/17 10:57 Dose: 20 mg Gabapentin (Neurontin) 300 mg PO BID [facility] Last Admin: 12/07/17 17:48 Dose: 300 mg Cefepime HCl (Maxipime Iv 1 Gm Premix) 1 gm in 50 mls @ 100 mls/hr IVPB Q8H [facility] Last Admin: 12/07/17 13:43 Dose: 100 mls/hr Insulin Human Regular (Novolin R) 0 unit SC ACHS [facility] PRN Reason: Protocol Last Admin: 12/07/17 16:30 Dose: 1 unit Losartan Potassium (Cozaar) 100 mg PO DAILY [facility] Last Admin: 12/07/17 10:57 Dose: 100 mg Metformin HCl (Glucophage) 500 mg PO BID [facility] Last Admin: 12/07/17 17:48 Dose: 500 mg Metoprolol Succinate (Toprol Xl) 25 mg PO DAILY [facility] Last Admin: 12/07/17 10:57 Dose: 25 mg Mupirocin (Bactroban Ointment) 1 gm TOP BID [facility] Last Admin: 12/07/17 17:50 Dose: 1 applic Pantoprazole Sodium (Protonix Ec Tab) 40 mg PO DAILY [facility] Last Admin: 12/07/17 10:57 Dose: 40 mg - Labs Labs: 12/07/17 07:11 12/07/17 07:11 - Constitutional Appears: Well, Non-toxic, No Acute Distress - Extremities Exam Additional comments: Lower extremity exam: Right dresing intact with serous strikethrough to outer layer of dressing. Left dressing clean, dry, and intact. VASC- DP/PT pulses palpable 1/4 B/L. TG runs warm to warm B/L. CFT <3 sec to digits x 10. +2 pitting edema noted to anterior aspect of shins and dorsum of feet B/L DERM: Right- Ulceration #1: Superficial ulcer noted to lateral aspect of lower 1/3 leg measures approximately 9cm x 5cm x0.2cm with 100% fibrotic wound base, minimal serous drainage noted on previous bandage with no active drainage today No noted kyree-wound erythema noted. No fluctuance, no malodor, no purulence Ulceration #2: Superficial noted to lateral aspect of lower 2/3 leg measures approximately 3cm x4cm x0.2cm with 100% fibrotic wound base. Minimal serous drainage noted on bandage, with no active drainage on exam. No noted kyree- wound erythema noted. No fluctuance, no malodor, no purulence. Absent hallux nail plate - epithelialized wound base noted to proximal hallucal nail bed. No purulence. no active drainage Left: ulceration #3 noted to posterolateral aspect of left leg measuring approx 4cm x 3cm x 0.2cm with 100% fibrotic wound base, minimal serous drainage noted. No noted erythema to leg at this time. Wound exhibits no probe to bone, no fluctuance, no malodor, no purulence. NEURO: gross pedal sensation intact B/L. Protective sensation diminished B/L ORTHO: tenderness upon palpation to skin surrounding ulcerations B/L - Neurological Exam Neurological Exam: Alert, Awake, Oriented x3 - Psychiatric Exam Psychiatric exam: Normal Affect, Normal Mood Assessment and Plan - Assessment and Plan (Free Text) Assessment: 71 y/o female patient with bilateral lower extremity ulcerations secondary to venous stasis disease and cellulitis, resolving. Plan: Patient examined and evaluated at bedside. Discussed in detail with attending, Dr. Shaffer. Labs, vitals, and chart reviewed - afebrile, leukopenic, WBC-1.6. LE cleansed with saline solution, ulcerations dressed with bactroban, ABD and DSD B/L. Right leg dressed with NURY wrap. Continue Iv abx: Cefepime 1gm q8h ID recommendations appreciated. Pt stable from podiatry standpoint. Podiatry will continue to follow while in house.
[2017-12-07 19:36] LABS: BASO % 0.4 % (0.0-2.0); HEMOGLOBIN 10.7 g/dL (11.0-16.0); LYMPH # 0.8 K/uL (1.0-4.3); LYMPH % 18.3 % (20.0-40.0); MEAN CELL VOLUME 81.8 fL (81.0-99.0); MEAN CORPUSCULAR HEMOGLOBIN 26.6 pg (27.0-31.0); MEAN CORPUSCULAR HGB CONC 32.6 g/dL (33.0-37.0); MEAN PLATELET VOLUME 7.5 fL (7.2-11.7); MONO # 0.6 K/uL (0.0-0.8); MONO % 13.2 % (0.0-10.0); NEUT # 2.8 K/uL (1.8-7.0); NEUT % 68.1 % (50.0-75.0); RBC 4.03 Mil/uL (3.80-5.20); RED CELL DISTRIBUTION WIDTH 14.5 % (11.5-14.5)
[2017-12-07 19:37] LABS: WHITE BLOOD COUNT 4.2 K/uL (4.8-10.8)
--- NOTE | 2017-12-07 20:43 | CP.PCM.CON ---
History of Present Illness - History of Present Illness History of Present Illness: 72 year old female with a history of psoriatic arthritis, HTN, DM, paroxysmal afib, DVT on Eliquis, PVD, admitted with B/L LE cellulitis/venous stasis ulcers with leukopenia. The patient is unaware of having blood problems in the past. She does note to swelling and pain in her legs for many years. Past medical history: DM, HTN, psoriatic arthritis, paroxysmal afib, DVT Past surgical history: , hernia repair Family history: Uncle had colon cancer Social history: Denies tobacco, alcohol, and illicit drug use. Allergies: Aspirin, iodine Review of systems: All remaining review of systems including HEENT, cardiovascular, respiratory, gastrointestinal, genitourinary, musculoskeletal, dermatologic, neurologic, and psychiatric are negative unless mentioned in the HPI. Past Patient History - Infectious Disease Hx of Infectious Diseases: None - Past Medical History & Family History Past Medical History?: Yes - Past Social History Smoking Status: Never Smoked - CARDIAC Hx Cardia Arrhythmia: Yes Hx Hypertension: Yes - PULMONARY Hx Respiratory Disorders: No - NEUROLOGICAL Hx Neurological Disorder: No - HEENT Hx HEENT Problems: Yes Hx Cataracts: Yes - ENDOCRINE/METABOLIC Hx Endocrine Disorders: Yes Hx Diabetes Mellitus Type 2: Yes - HEMATOLOGICAL/ONCOLOGICAL Hx Blood Disorders: Yes Hx Cancer: Yes (BREAST CA 1995) - INTEGUMENTARY Hx Dermatological Problems: Yes Other/Comment: psoriasis - MUSCULOSKELETAL/RHEUMATOLOGICAL Hx Musculoskeletal Disorders: Yes Hx Falls: Yes - GASTROINTESTINAL Hx Gastritis: Yes - GENITOURINARY/GYNECOLOGICAL Hx Genitourinary Disorders: No - PSYCHIATRIC Hx Substance Use: No - SURGICAL HISTORY Hx Surgeries: Yes Hx Section: Yes (x1) Hx Herniorrhaphy: Yes (x3) Hx Tubal Ligation: Yes Other/Comment: left breast lumpectomy. cardiac catherization - ANESTHESIA Hx Anesthesia: Yes Hx Anesthesia Reactions: No Meds Allergies/Adverse Reactions: Allergies Allergy/AdvReac Type Severity Reaction Status Date / Time apple Allergy Verified 12/02/17 17:15 aspirin Allergy RASH Verified 12/02/17 17:15 iodine Allergy RASH Verified 12/02/17 17:15 egg Allergy Uncoded 12/02/17 17:15 seafood Allergy RASH Uncoded 11/12/16 11:49 - Medications Medications: Current Medications Acetaminophen (Tylenol 325mg Tab) 650 mg PO Q4 PRN PRN Reason: pain Last Admin: 12/06/17 00:50 Dose: 650 mg Apixaban (Eliquis) 5 mg PO BID [facility] Last Admin: 12/07/17 17:49 Dose: 5 mg Diltiazem HCl (Cardizem) 30 mg PO TID [facility] Last Admin: 12/07/17 17:48 Dose: 30 mg Diphenhydramine HCl (Benadryl) 50 mg IVP BID PRN PRN Reason: Allergy symptoms Folic Acid (Folic Acid) 1 mg PO DAILY [facility] Last Admin: 12/07/17 10:57 Dose: 1 mg Furosemide (Lasix) 20 mg PO DAILY [facility] Last Admin: 12/07/17 10:57 Dose: 20 mg Gabapentin (Neurontin) 300 mg PO BID [facility] Last Admin: 12/07/17 17:48 Dose: 300 mg Cefepime HCl (Maxipime Iv 1 Gm Premix) 1 gm in 50 mls @ 100 mls/hr IVPB Q8H [facility] Last Admin: 12/07/17 13:43 Dose: 100 mls/hr Insulin Human Regular (Novolin R) 0 unit SC ACHS [facility] PRN Reason: Protocol Last Admin: 12/07/17 16:30 Dose: 1 unit Losartan Potassium (Cozaar) 100 mg PO DAILY [facility] Last Admin: 12/07/17 10:57 Dose: 100 mg Metformin HCl (Glucophage) 500 mg PO BID [facility] Last Admin: 12/07/17 17:48 Dose: 500 mg Metoprolol Succinate (Toprol Xl) 25 mg PO DAILY [facility] Last Admin: 12/07/17 10:57 Dose: 25 mg Mupirocin (Bactroban Ointment) 1 gm TOP BID [facility] Last Admin: 12/07/17 17:50 Dose: 1 applic Pantoprazole Sodium (Protonix Ec Tab) 40 mg PO DAILY [facility] Last Admin: 12/07/17 10:57 Dose: 40 mg Physical Exam - Head Exam Head Exam: ATRAUMATIC - Eye Exam Eye Exam: Normal appearance - ENT Exam ENT Exam: Mucous Membranes Dry - Respiratory Exam Respiratory Exam: NORMAL BREATHING PATTERN - Cardiovascular Exam Cardiovascular Exam: +S1, +S2 - GI/Abdominal Exam GI & Abdominal Exam: Normal Bowel Sounds - Extremities Exam Extremities exam: Positive for: pedal edema Results - Vital Signs Recent Vital Signs: Last Vital Signs Temp 98.1 F 12/07/17 15:00 Pulse 82 12/07/17 15:00 Resp 20 12/07/17 15:00 BP 123/67 12/07/17 15:00 Pulse Ox 97 12/07/17 15:00 - Labs Result Diagrams: 12/07/17 19:29 12/07/17 07:11 Labs: Laboratory Results - last 24 hr 12/06/17 12/07/17 12/07/17 21:31 07:11 07:11 WBC 1.6 L* D RBC 4.08 Hgb 11.0 Hct 33.3 L MCV 81.7 MCH 27.0 MCHC 33.0 RDW 14.2 Plt Count 314 MPV 7.7 Neut % (Auto) 66.7 Lymph % (Auto) 29.5 [place] % (Auto) 2.9 Eos % (Auto) 0.3 Baso % (Auto) 0.6 Neut # (Auto) 1.1 L Lymph # (Auto) 0.5 L [place] # (Auto) 0.0 Eos # (Auto) 0.0 Baso # (Auto) 0.0 Differential Comment Smear Path Review Sodium 127 L Potassium 4.2 Chloride 88 L Carbon Dioxide 24 Anion Gap 20 BUN 21 H Creatinine 1.0 Est GFR ( Amer) > 60 Est GFR (Non-Af Amer) 55 POC Glucose (mg/dL) 145 H Random Glucose 163 H Calcium 9.1 Total Bilirubin 0.3 AST 26 ALT 22 Alkaline Phosphatase 71 Total Protein 8.1 Albumin 3.7 Globulin 4.4 H Albumin/Globulin Ratio 0.9 L 12/07/17 12/07/17 12/07/17 07:22 11:10 16:35 WBC RBC Hgb Hct MCV MCH MCHC RDW Plt Count MPV Neut % (Auto) Lymph % (Auto) [place] % (Auto) Eos % (Auto) Baso % (Auto) Neut # (Auto) Lymph # (Auto) [place] # (Auto) Eos # (Auto) Baso # (Auto) Differential Comment Smear Path Review Sodium Potassium Chloride Carbon Dioxide Anion Gap BUN Creatinine Est GFR ( Amer) Est GFR (Non-Af Amer) POC Glucose (mg/dL) 151 H 202 H 161 H Random Glucose Calcium Total Bilirubin AST ALT Alkaline Phosphatase Total Protein Albumin Globulin Albumin/Globulin Ratio 12/07/17 19:29 WBC 4.2 L D RBC 4.03 Hgb 10.7 L Hct 33.0 L MCV 81.8 MCH 26.6 L MCHC 32.6 L RDW 14.5 Plt Count 343 MPV 7.5 Neut % (Auto) 68.1 Lymph % (Auto) 18.3 L [place] % (Auto) 13.2 H Eos % (Auto) 0.0 Baso % (Auto) 0.4 Neut # (Auto) 2.8 Lymph # (Auto) 0.8 L [place] # (Auto) 0.6 Eos # (Auto) 0.0 Baso # (Auto) 0.0 Differential Comment Smear Path Review Sodium Potassium Chloride Carbon Dioxide Anion Gap BUN Creatinine Est GFR ( Amer) Est GFR (Non-Af Amer) POC Glucose (mg/dL) Random Glucose Calcium Total Bilirubin AST ALT Alkaline Phosphatase Total Protein Albumin Globulin Albumin/Globulin Ratio Assessment & Plan (1) Leukopenia Assessment and Plan: with mild neutropenia appears to have resolved; ? lab error may have immune mediated component will cont. to monitor Status: Acute (2) Anemia Assessment and Plan: will check ferritin, retic count, b12, folate to further characterize Status: Acute (3) Elevated serum globulin level Assessment and Plan: may be related to psoriatic arthritis will rule out monoclonal protein Status: Acute (4) Coagulopathy Assessment and Plan: secondary to anticoagulation Thank you for this interesting consult. Status: Acute
--- NOTE | 2017-12-07 22:47 | CP.PCM.PN ---
Subjective - Date & Time of Evaluation Date of Evaluation: 12/07/17 Time of Evaluation: 17:30 - Subjective Subjective: she is feeling better, b/l cellulitis of LE with open right leg ulcer under treatment, antibiotics, wound care, medical management and podiatry follow up Objective - Vital Signs/Intake and Output Vital Signs (last 24 hours): Temp Pulse Resp BP Pulse Ox 98.1 F 82 20 123/67 97 12/07/17 15:00 12/07/17 15:00 12/07/17 15:00 12/07/17 15:00 12/07/17 15:00 Intake and Output: 12/07/17 12/08/17 18:59 06:59 Intake Total 530 Balance 530 - Medications Medications: Current Medications Acetaminophen (Tylenol 325mg Tab) 650 mg PO Q4 PRN PRN Reason: pain Last Admin: 12/06/17 00:50 Dose: 650 mg Apixaban (Eliquis) 5 mg PO BID [facility] Last Admin: 12/07/17 17:49 Dose: 5 mg Diltiazem HCl (Cardizem) 30 mg PO TID [facility] Last Admin: 12/07/17 17:48 Dose: 30 mg Diphenhydramine HCl (Benadryl) 50 mg IVP BID PRN PRN Reason: Allergy symptoms Folic Acid (Folic Acid) 1 mg PO DAILY [facility] Last Admin: 12/07/17 10:57 Dose: 1 mg Furosemide (Lasix) 20 mg PO DAILY [facility] Last Admin: 12/07/17 10:57 Dose: 20 mg Gabapentin (Neurontin) 300 mg PO BID [facility] Last Admin: 12/07/17 17:48 Dose: 300 mg Cefepime HCl (Maxipime Iv 1 Gm Premix) 1 gm in 50 mls @ 100 mls/hr IVPB Q8H [facility] Last Admin: 12/07/17 21:00 Dose: 100 mls/hr Insulin Human Regular (Novolin R) 0 unit SC ACHS [facility] PRN Reason: Protocol Last Admin: 12/07/17 16:30 Dose: 1 unit Losartan Potassium (Cozaar) 100 mg PO DAILY [facility] Last Admin: 12/07/17 10:57 Dose: 100 mg Metformin HCl (Glucophage) 500 mg PO BID [facility] Last Admin: 12/07/17 17:48 Dose: 500 mg Metoprolol Succinate (Toprol Xl) 25 mg PO DAILY [facility] Last Admin: 12/07/17 10:57 Dose: 25 mg Mupirocin (Bactroban Ointment) 1 gm TOP BID [facility] Last Admin: 12/07/17 17:50 Dose: 1 applic Pantoprazole Sodium (Protonix Ec Tab) 40 mg PO DAILY [facility] Last Admin: 12/07/17 10:57 Dose: 40 mg - Labs Labs: 12/07/17 19:29 12/07/17 07:11 - Constitutional Appears: No Acute Distress - Head Exam Head Exam: ATRAUMATIC, NORMAL INSPECTION, NORMOCEPHALIC - Respiratory Exam Respiratory Exam: Clear to Ausculation Bilateral, NORMAL BREATHING PATTERN - Cardiovascular Exam Cardiovascular Exam: REGULAR RHYTHM, +S1, +S2. absent: Murmur - GI/Abdominal Exam GI & Abdominal Exam: Soft, Normal Bowel Sounds. absent: Tenderness - Extremities Exam Extremities Exam: Tenderness - Skin Skin Exam: Erythema, Rash Additional comments: b/l LE chronic changes Assessment and Plan (1) Cellulitis Status: Acute (2) Diabetes Status: Chronic (3) HTN (hypertension) Status: Chronic (4) Tachycardia Status: Acute
[2017-12-08] MEDS: Cefepime IV 1 gm in Dextrose 1 GM/50 ML BAG IVPB SCH (04:29)
[2017-12-08 07:37] VITALS: BP 120/72; PULSE 94; TEMP 98; O2SAT 96
[2017-12-08] MEDS: (Novolin R) Insulin Human Regular 100 units/ml vial SC SCH ×2 (07:47→11:47)
[2017-12-08 08:18] LABS: BASO % 0.6 % (0.0-2.0); EOS % 0.3 % (0.0-4.0); HEMOGLOBIN 11.6 g/dL (11.0-16.0); LYMPH # 1.8 K/uL (1.0-4.3); LYMPH % 38.1 % (20.0-40.0); MEAN CELL VOLUME 82.7 fL (81.0-99.0); MEAN CORPUSCULAR HEMOGLOBIN 27.3 pg (27.0-31.0); MEAN PLATELET VOLUME 7.7 fL (7.2-11.7); MONO # 0.5 K/uL (0.0-0.8); MONO % 10.9 % (0.0-10.0); NEUT # 2.4 K/uL (1.8-7.0); NEUT % 50.1 % (50.0-75.0); RBC 4.25 Mil/uL (3.80-5.20); RED CELL DISTRIBUTION WIDTH 14.7 % (11.5-14.5); WHITE BLOOD COUNT 4.7 K/uL (4.8-10.8)
[2017-12-08 09:03] LABS: BLOOD UREA NITROGEN 27 mg/dL (7-17); CALCIUM 9.2 mg/dl (8.6-10.4); GFR AFRICAN-AMERICAN > 60; GFR NON-AFRICAN AMERICAN 55
[2017-12-08] MEDS: Metoprolol Succinate 25 mg XL Tab PO SCH (09:28)
[2017-12-08] MEDS: Pantoprazole 40 mg EC Tab PO SCH (09:28)
[2017-12-08 09:32] LABS: HEPATITIS B SURFACE AG Negative (NEGATIVE)
[2017-12-08 09:38] LABS: HEPATITIS A IGM NEGATIVE (NEGATIVE); HEPATITIS B CORE AB NEGATIVE (NEGATIVE)
[2017-12-08 09:44] LABS: FERRITIN 62.7 ng/mL
[2017-12-08 09:49] LABS: HEPATITIS C ANTIBODY NEGATIVE (NEGATIVE)
[2017-12-08 10:15] LABS: FOLATE > 20.0 ng/mL
[2017-12-08] MEDS ORDERED: Pneumococcal 23-Valent Vaccine IM ONE (12:16)
--- NOTE | 2017-12-08 18:02 | CP.PCM.PN ---
Objective - Vital Signs/Intake and Output Vital Signs (last 24 hours): Temp Pulse Resp BP Pulse Ox 98 F 94 H 20 120/72 96 12/08/17 07:34 12/08/17 07:34 12/08/17 07:34 12/08/17 09:28 12/08/17 07:34 - Labs Labs: 12/08/17 07:51 12/08/17 07:51 Assessment and Plan - Assessment and Plan (Free Text) Assessment: Patient is seen and examined. Denies sob or chest pains, improving ulcers on the legs.
--- NOTE | 2017-12-08 22:44 | CP.PCM.DIS ---
Provider - Provider Date of Admission: 12/02/17 17:57 Attending physician: William Field MD Time Spent in preparation of Discharge (in minutes): 45 Diagnosis - Discharge Diagnosis (1) Cellulitis Status: Acute (2) Diabetes Status: Chronic (3) HTN (hypertension) Status: Chronic (4) Tachycardia Status: Acute Hospital Course - Lab Results Lab Results: Micro Results 12/02/17 18:15 Blood Blood Culture - Final NO GROWTH AFTER 5 DAYS 12/02/17 18:15 Blood Gram Stain - Final TEST NOT PERFORMED 12/02/17 21:30 Blood Blood Culture - Final NO GROWTH AFTER 5 DAYS 12/02/17 21:30 Blood Gram Stain - Final TEST NOT PERFORMED 12/02/17 Unknown Leg - Right Gram Stain - Final 12/02/17 Unknown Leg - Right Wound Culture - Final Aeromonas Hydrophilia Group 12/02/17 17:54 Urine Urine Culture - Final <10,000 CFU/ML. MULTIPLE SPECIES. PROBABLE CONTAMINATION. Most Recent Lab Values WBC 4.7 K/uL (4.8-10.8) L 12/08/17 07:51 RBC 4.25 Mil/uL (3.80-5.20) 12/08/17 07:51 Hgb 11.6 g/dL (11.0-16.0) 12/08/17 07:51 Hct 35.2 % (34.0-47.0) 12/08/17 07:51 MCV 82.7 fL (81.0-99.0) 12/08/17 07:51 MCH 27.3 pg (27.0-31.0) 12/08/17 07:51 MCHC 33.0 g/dL (33.0-37.0) 12/08/17 07:51 RDW 14.7 % (11.5-14.5) H 12/08/17 07:51 Plt Count 365 K/uL (130-400) 12/08/17 07:51 MPV 7.7 fL (7.2-11.7) 12/08/17 07:51 Neut % (Auto) 50.1 % (50.0-75.0) 12/08/17 07:51 Lymph % (Auto) 38.1 % (20.0-40.0) 12/08/17 07:51 Foard % (Auto) 10.9 % (0.0-10.0) H 12/08/17 07:51 Eos % (Auto) 0.3 % (0.0-4.0) 12/08/17 07:51 Baso % (Auto) 0.6 % (0.0-2.0) 12/08/17 07:51 Neut # (Auto) 2.4 K/uL (1.8-7.0) 12/08/17 07:51 Lymph # (Auto) 1.8 K/uL (1.0-4.3) 12/08/17 07:51 Foard # (Auto) 0.5 K/uL (0.0-0.8) 12/08/17 07:51 Eos # (Auto) 0.0 K/uL (0.0-0.7) 12/08/17 07:51 Baso # (Auto) 0.0 K/uL (0.0-0.2) 12/08/17 07:51 Differential Comment 12/07/17 07:11 Smear Path Review 12/07/17 07:11 Retic Count 1.5 % (0.5-1.5) 12/08/17 07:51 Sodium 126 mmol/L (132-148) L 12/08/17 07:51 Potassium 3.9 mmol/L (3.6-5.2) 12/08/17 07:51 Chloride 86 mmol/L (98-107) L 12/08/17 07:51 Carbon Dioxide 25 mmol/L (22-30) 12/08/17 07:51 Anion Gap 18 (10-20) 12/08/17 07:51 BUN 27 mg/dL (7-17) H 12/08/17 07:51 Creatinine 1.0 mg/dL (0.7-1.2) 12/08/17 07:51 Est GFR ( Amer) > 60 12/08/17 07:51 Est GFR (Non-Af Amer) 55 12/08/17 07:51 POC Glucose (mg/dL) 158 mg/dL (65-110) H 12/08/17 10:58 Random Glucose 139 mg/dL (65-105) H 12/08/17 07:51 Calcium 9.2 mg/dl (8.6-10.4) 12/08/17 07:51 Ferritin 62.7 ng/mL 12/08/17 07:51 Total Bilirubin 0.3 mg/dL (0.2-1.3) 12/07/17 07:11 AST 26 U/L (14-36) 12/07/17 07:11 ALT 22 U/L (9-52) 12/07/17 07:11 Alkaline Phosphatase 71 U/L (38-126) 12/07/17 07:11 Total Protein 8.1 g/dL (6.3-8.3) 12/07/17 07:11 Albumin 3.7 g/dL (3.5-5.0) 12/07/17 07:11 Globulin 4.4 gm/dL (2.2-3.9) H 12/07/17 07:11 Albumin/Globulin Ratio 0.9 (1.0-2.1) L 12/07/17 07:11 Vitamin B12 > 1000 pg/mL (239-931) H 12/08/17 07:51 Folate > 20.0 ng/mL 12/08/17 07:51 Urine Color Yellow (YELLOW) 12/02/17 19:48 Urine Clarity Clear (Clear) 12/02/17 19:48 Urine pH 6.0 (5.0-8.0) 12/02/17 19:48 Ur Specific [place] 1.011 (1.003-1.030) 12/02/17 19:48 Urine Protein 1+ mg/dL (NEGATIVE) H 12/02/17 19:48 Urine Glucose (UA) Normal mg/dL (Normal) 12/02/17 19:48 Urine Ketones Negative mg/dL (NEGATIVE) 12/02/17 19:48 Urine Blood Negative (NEGATIVE) 12/02/17 19:48 Urine Nitrate Negative (NEGATIVE) 12/02/17 19:48 Urine Bilirubin Negative (NEGATIVE) 12/02/17 19:48 Urine Urobilinogen Normal mg/dL (0.2-1.0) 12/02/17 19:48 Ur Leukocyte Esterase Neg Connor/uL (Negative) 12/02/17 19:48 Urine WBC (Auto) < 1 /hpf (0-5) 12/02/17 19:48 Urine RBC (Auto) < 1 /hpf (0-3) 12/02/17 19:48 Ur Squamous Epith Cells < 1 /hpf (0-5) 12/02/17 19:48 Hepatitis A IgM Ab Negative (NEGATIVE) 12/08/17 07:51 Hep Bs Antigen Negative (NEGATIVE) 12/08/17 07:51 Hep B Core IgM Ab Negative (NEGATIVE) 12/08/17 07:51 Hepatitis C Antibody Negative (NEGATIVE) 12/08/17 07:51 HIV 1&2 Antibody Screen Negative (NEGATIVE) 12/08/17 07:51 - Hospital Course Hospital Course: Patient is seen and examined. Denies sob or chest pains, improving ulcers on the legs.Pt is for discharge today , SHE WILL BE ON KEFLEX Discharge Exam - Head Exam Head Exam: ATRAUMATIC, NORMAL INSPECTION, NORMOCEPHALIC - Eye Exam Eye Exam: EOMI, Normal appearance, PERRL Pupil Exam: NORMAL ACCOMODATION, PERRL - ENT Exam ENT Exam: Mucous Membranes Moist - Respiratory Exam Respiratory Exam: Decreased Breath Sounds, Rales, Rhonchi - Cardiovascular Exam Cardiovascular Exam: REGULAR RHYTHM, +S1, +S2 - GI/Abdominal Exam GI & Abdominal Exam: Normal Bowel Sounds Discharge Plan - Discharge Medications Prescriptions: Cephalexin [cephalexin] 500 mg PO BID #20 cap Metoprolol Succinate [Toprol XL] 25 mg PO DAILY #30 tab - Follow Up Plan Condition: STABLE Disposition: HOME/ ROUTINE Instructions: Diabetic Foot Ulcer (DC), Cellulitis (Skin Infection), Adult (DC) , Cephalexin, Metoprolol, Foot Care for Diabetics Additional Instructions: DISCHARGE HOME PER DR FIELD [facility]/ HOME PT/WOUND CARE ON THE LEGS PRESCRIBED KEFLEX 500MG PO [id number] FOLLOW UP WITH PMD IN 1 WEEK LEG WOUNDS, CLEAN WITH NS APPLY BACTROBAN AND DSD/ NURY WRAP Referrals: William Field MD [Staff Provider] -
== END 2017-12-08 14:50 | disposition home or self-care (01) | DRG 638 ==
LOC: C.ER 16:54 → C.9E 17:57 → C.3T 12-03 01:23
PROVIDERS: ADMIT Internal Medicine; ATTEND Internal Medicine
DX: E11.622 Type 2 diabetes mellitus with other skin ulcer (principal); D68.9 Coagulation defect, unspecified; L97.329 Non-pressure chronic ulcer of left ankle with unspecified severity; L97.319 Non-pressure chronic ulcer of right ankle with unspecified severity; I48.0 Paroxysmal atrial fibrillation; D70.9 Neutropenia, unspecified; I48.92 Unspecified atrial flutter; L40.50 Arthropathic psoriasis, unspecified; L03.115 Cellulitis of right lower limb; L03.116 Cellulitis of left lower limb; I10 Essential (primary) hypertension; E78.5 Hyperlipidemia, unspecified; B96.89 Other specified bacterial agents as the cause of diseases classified elsewhere; I87.2 Venous insufficiency (chronic) (peripheral); Z86.718 Personal history of other venous thrombosis and embolism; Z85.3 Personal history of malignant neoplasm of breast; Z79.4 Long term (current) use of insulin; Z79.01 Long term (current) use of anticoagulants